=== PATIENT | female | born 1955 | race Caucasian/White ===

== ENCOUNTER → 2018-04-03 | Outpatient (CLI) | payer MEDICAID | LOC: LABWHC1 13:51 | PROVIDERS: ATTEND Dermatology Dermatopathology | DX: L40.0 Psoriasis vulgaris (principal); Z79.899 Other long term (current) drug therapy | CPT/HCPCS: 36415 ==

== ENCOUNTER → 2019-03-20 | Outpatient (CLI) | payer MEDICAID | END | disposition home or self-care (01) | LOC: LABWHC1 10:29 | PROVIDERS: ATTEND Dermatology Dermatopathology | DX: L40.0 Psoriasis vulgaris (principal); Z79.899 Other long term (current) drug therapy | CPT/HCPCS: 36415; 86480 ==

== ENCOUNTER → 2019-03-20 | Outpatient (CLI) | payer MEDICAID ==
--- NOTE | 2019-03-20 11:00 | BD ---
EXAMINATION TYPE: Axial Bone Density DATE OF EXAM: 03/20/2019 COMPARISON: 2008 DEXA bone scan report CLINICAL HISTORY: Postmenopausal female Height: 5 FT 6 IN Weight: 123 FRAX RISK QUESTIONS: Alcohol (3 or more units per day): NO Family History (Parent hip fracture): NO Glucocorticoids (More than 3mos): NO (Ex: prednisone, prednisolone, methylprednisolone, dexamethasone, and hydrocortisone). History of Fracture in Adulthood: NO Secondary Osteoporosis: 1. Type 1 Diabetes: NO 2. Hyperthyroidism: NO 3. Menopause before 45: NO 4. Malnutrition: NO 5. Chronic liver disease: NO Rheumatoid Arthritis: NO Current Tobacco Use: NO RISK FACTORS HISTORY OF: Active: YES Postmenopausal woman: AGE 55-56 MEDICATIONS: Additional Medications: STELARA INJ FOR PSORIASIS EVERY 3 MONTHS Additional History: STELARA INJ FOR PSORIASIS EXAM MEASUREMENTS: Bone mineral densitometry was performed using the [employer] System. Bone mineral density as measured about the Lumbar spine is: ----- L1-L4(G/cm2): 0.967 T Score Values are as follows: ----- L2: -1.6 ----- L3: -2.2 ----- L4: -1.1 ----- L1-L4: -1.8 Bone mineral density has: DECREASED -0.1 % since study of: 2008 Bone mineral density about the R hip (g/cm2): 0.816 Bone mineral density about the L hip (g/cm2): 0.798 T Score values are as follows: -----R Neck: -1.6 -----L Neck: -1.7 -----R Total: -1.6 -----L Total: -1.7 Bone mineral density has: DECREASED -15.2 % since study of: 2008 IMPRESSION: Osteopenia (T Score between -2.5 and -1) remains present. There remains slightly increased risk of fracture and the patient may be considered for treatment. Re-Screen 2-5 years. NOTE: T-SCORE=SD OF THE YOUNG ADULT MEAN.
--- NOTE | 2019-03-23 11:54 | MM ---
Reason for exam: screening (asymptomatic). Last mammogram was performed 11 years and 9 months ago. History: Patient is postmenopausal. Took hormonal contraceptives for 10 years. Physical Findings: A clinical breast exam by your physician is recommended on an annual basis and results should be correlated with mammographic findings. MG 3D Screening Mammo W/Cad Bilateral CC and MLO view(s) were taken. Prior study comparison: September 05, 2013, mammogram. June 10, 2010, mammogram. The breast tissue is heterogeneously dense. This may lower the sensitivity of mammography. There are benign appearing vascular calcifications in the right breast. There is no discrete abnormality. ASSESSMENT: Benign, BI-RAD 2 RECOMMENDATION: Routine screening mammogram of both breasts in 1 year.
== END | disposition home or self-care (01) ==
LOC: RADMAMWWP 09:43
PROVIDERS: ATTEND Obstetrics & Gynecology
DX: Z12.31 Encounter for screening mammogram for malignant neoplasm of breast (principal); M85.80 Other specified disorders of bone density and structure, unspecified site
CPT/HCPCS: 77063; 77067; 77080

== ENCOUNTER 2019-12-18 08:45 | Emergency (ER) | payer MEDICAID ==
[2019-12-18 08:51] VITALS: RESP 18; TEMP 98.3
[2019-12-18] MEDS ORDERED: HYDROcodone/APAP 7.5-325MG 1 EACH TAB PO ONE (09:03)
--- NOTE | 2019-12-18 09:32 | XR ---
EXAMINATION TYPE: XR foot complete RT DATE OF EXAM: 12/18/2019 COMPARISON: NONE HISTORY: Pain TECHNIQUE: Three views are submitted. FINDINGS: A chronic appearing deformities of the first, second, third, fourth and fifth proximal phalanx. Sever e arthropathy of the first MTP with moderate changes involving the remaining MTP joints. No erosive c hanges. Postsurgical change involving the first metatarsal. Tiny plantar calcaneal spur. IMPRESSION: 1. Diffuse osteopenia with arthropathy and postsurgical changes. No definite acute fracture. If sympt oms persist consider follow-up exam in 7-10 days.
--- NOTE | 2019-12-18 09:33 | XR ---
EXAMINATION TYPE: XR knee complete RT DATE OF EXAM: 12/18/2019 COMPARISON: NONE HISTORY: Pain TECHNIQUE: Three views are submitted. FINDINGS: Joint spaces are preserved. Osseous structures are intact. No acute fracture seen. Mild diffuse os teopenia. There is a moderate-sized suprapatellar joint effusion. IMPRESSION: 1. No acute fracture or dislocation. Moderate-sized suprapatellar joint effusion. If there is concer n for internal derangement of the knee correlate with MRI.
--- NOTE | 2019-12-18 09:42 | ED ---
Fall HPI - General Chief Complaint: Fall Stated Complaint: fall, rt sided pain Time Seen by Provider: 12/18/19 08:55 Source: patient, RN notes reviewed Mode of arrival: wheelchair Limitations: physical limitation - History of Present Illness Initial Comments: This is a pleasant 64-year-old female presents to the emergency Department with the chief complaint of a fall that happened yesterday. Patient states she tripped falling on her right side. She states she slipped on the hardwood floor. Patient complains of right hip, pelvic pain, right knee pain and right foot pain. She does not she's had prior surgery to her right foot. She states she is barely able to put pressure on her right leg secondary to pain. She was using crutches that she had the house. She took some ibuprofen last night minimal relief of symptoms. Denies any head injury no loss conscious. Denies any back pain, bowel bladder incontinence. Patient denies any chest pain, lower [place] paresthesias. Patient states her right knee is swollen, pain over the dorsal aspect of her foot primarily over the first and second metacarpal region - Related Data Home Medications Medication Instructions Recorded Confirmed Ustekinumab [Stelara] 45 mg SQ Q90D 12/18/19 12/18/19 Previous Rx's Medication Instructions Recorded HYDROcodone/APAP 7.5-325MG [[place] 1 tab PO Q6HR PRN #20 tab 12/18/19 7.5-325] Allergies Allergy/AdvReac Type Severity Reaction Status Date / Time No Known Allergies Allergy Verified 12/18/19 09:38 Review of Systems ROS Statement: Those systems with pertinent positive or pertinent negative responses have been documented in the HPI. ROS Other: All systems not noted in ROS Statement are negative. Past Medical History Past Medical History: No Reported History History of Any Multi-Drug Resistant Organisms: None Reported Additional Past Surgical History / Comment(s): bunion surgery. Past Psychological History: No Psychological Hx Reported Smoking Status: Never smoker Past Alcohol Use History: Occasional Past Drug Use History: None Reported General Exam Limitations: no limitations General appearance: alert, in no apparent distress Head exam: Present: atraumatic, normocephalic, normal inspection Eye exam: Present: normal appearance Neck exam: Present: normal inspection, full ROM. Absent: tenderness, meningismus, lymphadenopathy Respiratory exam: Present: normal lung sounds bilaterally. Absent: respiratory distress, wheezes, rales, rhonchi, stridor Cardiovascular Exam: Present: regular rate, normal rhythm, normal heart sounds. Absent: systolic murmur, diastolic murmur, rubs, gallop, clicks GI/Abdominal exam: Present: soft, normal bowel sounds. Absent: distended, tenderness, guarding, rebound, rigid Extremities exam: Present: other (Right foot there is mild tenderness of the first and second metatarsal region. Neurovascular intact. No iris deformity no malleoli tenderness there is some swelling noted of the right knee with mild discomfort with range of motion towards her right hip. There is minimal tenderness the right hip, ) Neurological exam: Present: alert, oriented X3 Skin exam: Present: warm, dry, intact, normal color. Absent: rash Course Vital Signs 12/18/19 12/18/19 12/18/19 08:48 09:51 10:00 Temperature 98.3 F Pulse Rate 77 72 72 Respiratory 18 18 18 Rate Blood Pressure 167/78 146/86 146/86 O2 Sat by Pulse 100 100 100 Oximetry Medical Decision Making - Medical Decision Making 64-year-old presented for fall. Patient has right-sided superior and inferior pubic rami fracture. Patient has a cyst walking device at home. Patient will follow-up with orthopedics pain control provided. Disposition Clinical Impression: Fall, Fracture of right inferior pubic ramus, Fracture of right superior pubic ramus Disposition: HOME SELF-CARE Condition: Stable Instructions (If sedation given, give patient instructions): Pelvic Fracture (ED) Additional Instructions: Please return to the Emergency Department if symptoms worsen or any other concerns. Prescriptions: HYDROcodone/APAP 7.5-325MG [[place] 7.5-325] 1 tab PO Q6HR PRN #20 tab PRN Reason: Pain Is patient prescribed a controlled substance at d/c from ED?: Yes When asked, does pt state using other controlled substances?: No If prescribed controlled substance>3 days was MAPS reviewed?: Yes If opioid is for acute pain is fill amount 7 days or less?: Yes If Rx opioid, was Start Talking consent form obtained?: Yes Referrals: Kvng Castle MD [Primary Care Provider] - 1-2 days Alejandro Cid MD [STAFF PHYSICIAN] - 1-2 days Time of Disposition: 10:25
--- NOTE | 2019-12-18 09:43 | XR ---
EXAMINATION TYPE: XR Hip RT and AP Pelvis DATE OF EXAM: 12/18/2019 COMPARISON: NONE HISTORY: Pain TECHNIQUE: A single AP view of the pelvis is obtained. Two views of the right hip are obtained. FINDINGS: There is hypertrophic and degenerative change lower lumbar spine. There is a deformity of the right inferior pubic ramus. Along the distal margin of the superior pubic ramus near the pubic sy mphysis there is a slight cortical step-off. Femoral neck. IMPRESSION: 1. Findings are compatible with an acute fracture involving the right superior and inferior pubic michelle us.
--- NOTE | 2019-12-18 10:16 | CT ---
EXAMINATION TYPE: CT pelvis wo con DATE OF EXAM: 12/18/2019 COMPARISON: X-ray 12/18/2019 HISTORY: Fall, right sided pain CT DLP: 490.4 mGycm Automated exposure control for dose reduction was used. FINDINGS: There is an acute fracture involving the right inferior pubic ramus as well as the superior pubic michelle us ramus as it extends to the symphysis pubis. Mild displacement of the inferior pubic ramus fracture . Visualized intrapelvic structures demonstrate small amount of fluid in the pelvis potentially could r epresent a small amount of blood. Bladder is decompressed limited in assessment. There is abnormal at tenuation along the anterior margin the bladder which is hyperdense. This could represent small amoun t of hemorrhage. Urinoma or bladder injury not excluded. Small amount subcutaneous edema seen lateral to the right hip. IMPRESSION: 1. Acute fractures of the right superior and inferior pubic ramus. 2. A small amount of attenuation anterior to the bladder which is hyperdense likely representing hemo rrhage. Additionally area of hyperdense attenuation is seen posteriorly within the pelvis also could represent hemorrhage. Bladder is decompressed and limited assessment as discussed above. Correlate wi th hemoglobin and hematocrit.
[2019-12-18 10:38] VITALS: BP 133/101; PULSE 69
== END 2019-12-18 10:38 | disposition home or self-care (01) ==
LOC: EC 08:45
DX: S32.591A Other specified fracture of right pubis, initial encounter for closed fracture (principal); Z79.899 Other long term (current) drug therapy; Z98.890 Other specified postprocedural states; W01.198A Fall on same level from slipping, tripping and stumbling with subsequent striking against other object, initial encounter; Y92.009 Unspecified place in unspecified non-institutional (private) residence as the place of occurrence of the external cause
CPT/HCPCS: 72192; 73502; 99284

== ENCOUNTER → 2020-03-26 | Outpatient (CLI) | payer MEDICAID ==
[2020-03-26 10:25] LABS: Basophils % (A) 1 %; Eosinophils # (A) 0.1 k/uL (0-0.7); Eosinophils % (A) 4 %; HCT 44.3 % (34.0-46.0); HGB 15.2 gm/dL (11.4-16.0); Lymphocytes # (A) 1.1 k/uL (1.0-4.8); Lymphocytes % (A) 35 %; MCHC 34.4 g/dL (31.0-37.0); Mean Platelet Volume 7.1; Monocytes # (A) 0.3 k/uL (0-1.0); Monocytes % (A) 9 %; Neutrophils # (A) 1.5 k/uL (1.3-7.7); Neutrophils % (A) 48 %; Platelet Count 167 k/uL (150-450); RBC 4.62 m/uL (3.80-5.40); WBC 3.1 k/uL (3.8-10.6)
[2020-03-27 04:09] LABS: African American GFR (CKD) 89.7 (60.0-200.0); Albumin/Globulin Ratio 2.63 (1.60-3.17); Anion Gap 18.6 mmol/L (4.00-12.00); BUN/Creat Ratio 13.75 Ratio (12.00-20.00); Calcium 9.9 mg/dL (8.7-10.3); Carbon Dioxide 19.4 mmol/L (21.6-31.8); Chol/HDL Ratio 1.99; Globulin 1.9 g/dL (1.6-3.3); LDL Cholesterol,Calculated 85.6 mg/dL (0.0-131.0); Non-African American GFR(CKD) 77.4 (60.0-200.0); Potassium 4.6 mmol/L (3.5-5.5); Total Bilirubin 0.8 mg/dL (0.3-1.2); Total Protein 6.9 g/dL (6.2-8.2); VLDL Calculation 17.4 mg/dL (5.00-40.00)
== END | disposition home or self-care (01) ==
LOC: LABWHC1 09:40
PROVIDERS: ATTEND Dermatology Dermatopathology
DX: Z00.00 Encounter for general adult medical examination without abnormal findings (principal); L40.9 Psoriasis, unspecified; M85.80 Other specified disorders of bone density and structure, unspecified site; Z79.899 Other long term (current) drug therapy; Z13.220 Encounter for screening for lipoid disorders; Z13.228 Encounter for screening for other metabolic disorders
CPT/HCPCS: 36415; 80053; 80061; 82306; 84439; 84443; 85025; 86480

== ENCOUNTER → 2020-07-01 | Outpatient (CLI) | payer MEDICARE, BC ==
--- NOTE | 2020-07-01 12:27 | US ---
EXAMINATION TYPE: US pelvis complete transvag DATE OF EXAM: 07/01/2020 COMPARISON: NONE CLINICAL HISTORY: R68.89 Left ovarian cyst. Patient states doctor felt possible left ovarian cyst. TECHNIQUE: Transvaginal (TV) and Transabdominal (TA) . Transabdominal sonographic images of the pel vis were acquired. Transvaginal sonographic images were medically necessary to better assess the fol lowing anatomy: Ovaries Date of LMP: Postmenopausal, EXAM MEASUREMENTS: Uterus: 5.1 x 4.2 x 2.8 cm Endometrial Stripe: 0.2 cm 1. Uterus: Anteverted and anteflexed. Appears small in size. Heterogenous. Limited visualization due to bowel gas 2. Endometrium: wnl 3. Right Ovary: Obscured by overlying bowel gas 4. Left Ovary: Obscured by overlying bowel gas 5. Bilateral Adnexa: prominent vessels seen in left adnexa 6. Posterior cul-de-sac: no free fluid IMPRESSION: 1. Normal pelvic ultrasound.
== END | disposition home or self-care (01) ==
LOC: RADUSWWP 09:09
PROVIDERS: ATTEND Obstetrics & Gynecology
DX: N83.202 Unspecified ovarian cyst, left side (principal)
CPT/HCPCS: 76830; 76856

== ENCOUNTER → 2020-07-03 | Outpatient (CLI) | payer MEDICARE, BC ==
--- NOTE | 2020-07-07 09:47 | MM ---
Reason for exam: screening (asymptomatic). Last mammogram was performed 1 year and 3 months ago. History: Patient is postmenopausal. Took hormonal contraceptives for 10 years. Physical Findings: A clinical breast exam by your physician is recommended on an annual basis and results should be correlated with mammographic findings. MG 3D Screening Mammo W/Cad Bilateral CC and MLO view(s) were taken. Prior study comparison: March 20, 2019, bilateral MG 3d screening mammo w/cad. The breast tissue is heterogeneously dense. This may lower the sensitivity of mammography. No significant changes when compared with prior studies. ASSESSMENT: Benign, BI-RAD 2 RECOMMENDATION: Routine screening mammogram of both breasts in 1 year.
== END | disposition home or self-care (01) ==
LOC: RADMAMWWP 10:17
PROVIDERS: ATTEND Obstetrics & Gynecology
DX: Z12.31 Encounter for screening mammogram for malignant neoplasm of breast (principal); Z78.0 Asymptomatic menopausal state; Z80.3 Family history of malignant neoplasm of breast
CPT/HCPCS: 77063; 77067

== ENCOUNTER → 2020-07-14 | Outpatient (CLI) | payer MEDICARE, BC ==
[2020-07-14 14:41] LABS: African American GFR (CKD) >90 (>60 ml/min/1.73 sqM); Blood Urea Nitrogen 14 mg/dL (7-17); Non-African American GFR(CKD) >90 (>60 ml/min/1.73 sqM)
--- NOTE | 2020-07-14 16:14 | CT ---
EXAMINATION TYPE: CT abdomen pelvis w con DATE OF EXAM: 07/14/2020 HISTORY: abnormal pelvic US CT DLP: 424.5mGycm Automated Exposure Control for Dose Reduction was Utilized. CONTRAST: CT scan of the abdomen and pelvis is performed with IV Contrast, patient injected with 100 mL of Isov ue 300. COMPARISON: CT pelvis December 18, 2019. Pelvic ultrasound July 01, 2020 FINDINGS: LUNG BASES: No significant abnormality is appreciated. LIVER/GB: Prominent right hepatic lobe redemonstrated and stable. PANCREAS: No significant abnormality is seen. SPLEEN: No significant abnormality is seen. ADRENALS: No significant abnormality is seen. KIDNEYS: Symmetric cortical medullary uptake and excretion from both kidneys without concerning solid or cystic renal mass or hydronephrosis seen bilaterally. BOWEL: Oral contrast reaches level of cecum making evaluation of distal ball somewhat suboptimal. Nor mal-appearing appendix is seen in the right upper pelvis posteriorly. There is moderate fecal promine nce throughout the right and transverse colonic loops. No suspicious smaller large bowel dilatation. Patient has very little intra-abdominal fat making evaluation slightly suboptimal. UTERUS/ADNEXA: Uterus is somewhat small in size consistent with patient's postmenopausal age. No susp icious adnexal masses. No significant prominent draining veins or vessels in the pelvis on CT. LYMPH NODES: No greater than 1cm abdominal or pelvic lymph nodes are appreciated. OSSEOUS STRUCTURES: Moderate disc space narrowing with vacuum disc phenomenon L4-L5 level. Mild-to-mo derate multilevel anterior and lateral spurring. Tzdj-gi-athzldke narrowing of both hip joints. OTHER: No significant additional abnormality is seen. IMPRESSION: No concerning pelvic mass. Fairly moderate proximal to mid colonic fecal stasis. No bowel obstruction.
== END | disposition home or self-care (01) ==
LOC: RADCTMAIN 13:52
PROVIDERS: ATTEND Obstetrics & Gynecology
DX: K59.89 Other specified functional intestinal disorders (principal)
CPT/HCPCS: 82565; 84520; 74177; 36415; Q9967

== ENCOUNTER → 2021-03-17 | Outpatient (CLI) | payer MEDICARE, BC | END | disposition home or self-care (01) | LOC: LABWHC1 12:47 | PROVIDERS: ATTEND Dermatology Dermatopathology | DX: L40.0 Psoriasis vulgaris (principal) | CPT/HCPCS: 36415; 86480 ==

== ENCOUNTER → 2023-09-08 | Outpatient (CLI) | payer MEDICARE ==
[2023-09-08 14:46] VITALS: BP 145/94; PULSE 74; RESP 16; TEMP 97.6
[2023-09-08] MEDS: ZOLEDRONIC ACID 5 MG in SODIUM CHLORIDE 0.9% 100 ML IV NR (14:48)
[2023-09-08] MEDS: SODIUM CHLORIDE 0.9% 500 ML 500 ML in EMPTY BAG 1 BAG IV PRN (14:48)
== END ==
LOC: PROCWHC3 14:32
PROVIDERS: ATTEND Family Medicine
DX: M81.0 Age-related osteoporosis without current pathological fracture (principal); E55.9 Vitamin D deficiency, unspecified
CPT/HCPCS: 96365; J3489

== ENCOUNTER → 2023-09-13 | Outpatient (CLI) | payer MEDICARE ==
--- NOTE | 2023-09-13 14:03 | CT ---
EXAMINATION TYPE: CT wrist LT wo con DATE OF EXAM: 09/13/2023 COMPARISON: None HISTORY: fx CT DLP: 112.[address] of the left wrist with reconstruction imaging. TECHNIQUE: Unenhanced CT of the left wrist was performed with bone and soft tissue window settings garza bmitted in the axial coronal and sagittal planes. At a separate workstation 3-D TR imaging was obtai nikki. FINDINGS: Comminuted fracture distal radius with intra-articular extension. A portion of the fracture demonstrates 1 mm fracture depression. 2 mm fracture displacement. No additional fractures seen with in the field of view. The ulna as visualized is intact as are the carpal bones. There is soft tissue edema noted. IMPRESSION: 1. Comminuted distal radial fracture with intra-articular extension.
== END | disposition home or self-care (01) ==
LOC: RADCTMAIN 12:40
PROVIDERS: ATTEND Orthopaedic Surgery
DX: M25.532 Pain in left wrist (principal); S52.572A Other intraarticular fracture of lower end of left radius, initial encounter for closed fracture

== ENCOUNTER → 2024-03-30 | Outpatient (CLI) | payer MEDICARE ==
[2024-03-30 12:59] LABS: African American GFR (CKD) >90 (>60 ml/min/1.73 sqM); Blood Urea Nitrogen 11 mg/dL (7-17); Non-African American GFR(CKD) >90 (>60 ml/min/1.73 sqM)
--- NOTE | 2024-03-30 13:45 | CT ---
EXAMINATION TYPE: CT abdomen w con CT DLP: 505 mGycm, Automated exposure control for dose reduction was used. DATE OF EXAM: 03/30/2024 1:31 PM COMPARISON: CT abdomen pelvis 07/14/2020 CLINICAL INDICATION:Female, 68 years old with history of K59.00 CONSTIP R14.0 ABD DISTENSION; Constip ation and abdominal bloating. TECHNIQUE: Standard CT of the abdomen following the administration of 100 cc of Isovue 300 IV contr ast material and oral contrast. Coronal and sagittal reformats were performed. FINDINGS: LOWER CHEST: Trace left pleural effusion. Calcified granuloma within the left lower lobe. ABDOMEN LIVER: Unremarkable. Portal venous system is patent. GALLBLADDER AND BILE DUCTS: Unremarkable. PANCREAS: Unremarkable. SPLEEN: Calcified granuloma. ADRENAL GLANDS: Unremarkable. KIDNEYS AND URETERS: No evidence of hydronephrosis or renal calculus. The kidneys enhance symmetrical ly. Contrast is demonstrated within both collecting systems on the delayed phase. STOMACH AND BOWEL: Small hiatal hernia, duodenum is unremarkable. No visualized focal bowel wall thic kening. Enteric contrast reaches the mid small bowel. Moderate amount of stool is present within the visualized colon. No evidence of bowel obstruction. PERITONEUM/RETROPERITONEUM: No evidence of pneumoperitoneum. Small amount of ascites is demonstrated throughout the abdomen and pelvis. Large amount of omental caking identified measuring up to 13.3 x 4 .4 cm (series 3, image 55). VASCULATURE: No evidence of aortic aneurysm. MUSCULOSKELETAL: No acute osseous abnormalities. Mild multilevel degenerative disc disease. No aggres sive osseous lesion. LYMPH NODES: No gross evidence for lymphadenopathy. SOFT TISSUE/ABDOMINAL WALL: Unremarkable IMPRESSION: 1. Large amount of omental caking with small volume ascites throughout the visualized abdomen and pe lvis. Findings are highly concerning for malignancy of unknown primary. Further workup is recommended . Consider further evaluation with CT pelvis. 2. Trace left pleural effusion. 3. Small hiatal hernia. [facility], , 03/30/2024 1:43 PM
== END | disposition home or self-care (01) ==
LOC: RADCTMAIN 12:17
PROVIDERS: ATTEND Family Medicine
DX: K44.9 Diaphragmatic hernia without obstruction or gangrene (principal); J90 Pleural effusion, not elsewhere classified; K59.00 Constipation, unspecified; R14.0 Abdominal distension (gaseous); R18.8 Other ascites
CPT/HCPCS: 82565; 84520; 74160; 36415; Q9967

== ENCOUNTER → 2024-04-03 | Outpatient (CLI) | payer MEDICARE ==
[2024-04-03 13:57] LABS: African American GFR (CKD) >90 (>60 ml/min/1.73 sqM); Blood Urea Nitrogen 11 mg/dL (7-17); Non-African American GFR(CKD) >90 (>60 ml/min/1.73 sqM)
--- NOTE | 2024-04-03 15:37 | CT ---
EXAMINATION TYPE: CT ChestAbdPelvis w con DATE OF EXAM: 04/03/2024 COMPARISON: CT abdomen 03/30/24 HISTORY: malignant ascites CT DLP: 545 mGycm Automated exposure control for dose reduction was used. CONTRAST: CT scan of the chest, abdomen and pelvis is performed with Oral Contrast and with IV Contrast, patien t injected with 100ml mL of Isovue 300. FINDINGS: CT chest: There is a small hiatal hernia. There is no suspicious lung mass or nodule. There are 2 small calcified granulomas in the left lung b ase. There is no abnormal airspace/consolidative density or abnormal interstitial density. There is a small left pleural effusion. The great vessels and chest are normal there is no mediastinal, hilar or axillary adenopathy. No focal osseous lesions are seen. CT abdomen and pelvis: Gallbladder is normal without distention, pericholecystic fluid, wall thickening or gallstone. There is no biliary ductal dilatation. There is no focal mass or organomegaly involving the liver, pancreas, spleen or adrenal glands.. There is no solid renal mass or hydronephrosis. There is no retroperitoneal adenopathy or hemorrhage in the caliber of the abdominal aorta is normal. The bowel loops are normal in caliber and there is no dilatation or obstruction. As on the prior study, there is a large degree of omental caking and there is a moderate degree of a scites predominantly within the upper abdomen. There is no free intraperitoneal air. No focal osseous lesions are seen. IMPRESSION: 1. No change in the small left pleural effusion. 2. No change in the marked degree of omental caking in the abdomen and pelvis with stable moderate as cites. [facility], , 04/03/2024 3:35 PM
== END | disposition home or self-care (01) ==
LOC: RADCTMAIN 13:20
PROVIDERS: ATTEND Internal Medicine Hematology & Oncology
DX: Z03.89 Encounter for observation for other suspected diseases and conditions ruled out (principal); R18.0 Malignant ascites; J90 Pleural effusion, not elsewhere classified
CPT/HCPCS: 82565; 84520; 71260; 74177; 36415; Q9967

== ENCOUNTER 2024-04-20 10:26 | Day surgery (SDC) | payer MEDICARE ==
[~2024-04-20 10:26] MED LIST: HYDROmorphone 0.5 MG/0.5 ML SYRINGE IVP PRN; Pre Op ABX Message 1 EACH MISC MISCELLANE ONE
[2024-04-20] MEDS: LACTATED RINGERS 1,000 ML IV ONE (10:48)
[2024-04-20 10:53] VITALS: TEMP 98.4
[2024-04-20] MEDS: DEXAMETHASONE SOD PHOSPHATE 4 MG/ML 1 ML VIAL IV ONE (10:54)
[2024-04-20] MEDS: LACTATED RINGERS 1,000 ML IV SCH (10:54)
[2024-04-20] MEDS: ONDANSETRON 4 MG/2 ML VIAL IVP ONE (10:54)
[2024-04-20] MEDS ORDERED: PROPOFOL 10 MG/ML 20 ML VIAL IV ONE (12:41)
[2024-04-20] MEDS ORDERED: SUCCINYLCHOLINE CHLORIDE 200 MG/10 ML VIAL IV ONE (12:41)
[2024-04-20] MEDS ORDERED: fentaNYL (PF) 50 MCG/ML 2 ML AMP ONE (12:41)
[2024-04-20] MEDS ORDERED: MIDAZOLAM 2 MG/2 ML VIAL ONE (12:41)
[2024-04-20] MEDS ORDERED: LIDOCAINE 1% INJ 10MG/ML (20 ML MDV) ONE (12:41)
[2024-04-20] MEDS ORDERED: KETOROLAC 15 MG/ML 1 ML VIAL ONE (12:41)
--- NOTE | 2024-04-20 12:43 | P.GSHP ---
History of Present Illness H&P Date: 04/20/24 Chief Complaint: Ovarian cancer 68-year-old female recently diagnosed with ovarian cancer. Patient here today for Port-A-Cath placement. Thinks she will begin chemotherapy next week. Past Medical History Past Medical History: Cancer, Thyroid Disorder Additional Past Medical History / Comment(s): PSORIASIS, OSTEOPOROSIS, hypothyroidism, recent dx. "almost 100% sure it's ovarian cancer" History of Any Multi-Drug Resistant Organisms: None Reported Past Surgical History: Orthopedic Surgery Additional Past Surgical History / Comment(s): bunion surgery, closed reduction left wrist, colonoscopy x 2 Past Anesthesia/Blood Transfusion Reactions: No Reported Reaction Smoking Status: Never smoker Medications and Allergies Home Medications Medication Instructions Recorded Confirmed Type Levothyroxine Sodium 25 mcg PO DAILY 09/08/23 04/20/24 History Secukinumab [Cosentyx Unoready Pen] 3 ml SQ DIRECTED 09/08/23 04/20/24 History Allergies Allergy/AdvReac Type Severity Reaction Status Date / Time No Known Allergies Allergy Verified 04/20/24 10:49 Surgical - Exam Vital Signs Temp Pulse Resp BP Pulse Ox 98.4 F 80 16 136/73 96 04/20/24 10:52 04/20/24 10:52 04/20/24 10:52 04/20/24 10:52 04/20/24 10:52 Physical exam: General: Well-developed, thin appearing HEENT: Normocephalic, sclerae nonicteric Abdomen: Nontender, mild distention Extremities: No edema Neuro: Alert and oriented Assessment and Plan (1) Ovarian cancer Narrative/Plan: Will proceed with Port-A-Cath placement at this time. Risks of bleeding, infection, DVT, pneumothorax, catheter malfunction, anesthesia related complications were discussed. The patient understands and wishes to proceed. Current Visit: Yes Status: Acute Code(s): C56.9 - MALIGNANT NEOPLASM OF UNSPECIFIED OVARY SNOMED Code(s): 773990264
[2024-04-20] MEDS: SODIUM CHLORIDE 0.9% 100 ML with ceFAZolin 2,000 MG IV ONE (12:46)
[2024-04-20] MEDS: HEPARIN SODIUM,PORCINE 100 UNIT/ML 5 ML VIAL IV ONE (13:14)
[2024-04-20] MEDS: BUPIVACAINE (PF) 0.25% 30 ML VIAL SQ ONE ×2 (13:14)
[2024-04-20] MEDS ORDERED: NALOXONE 0.4 MG/ML 1 ML VIAL IV PRN (13:42)
[2024-04-20] MEDS ORDERED: traMADol 50 MG TAB PO PRN (13:42)
--- NOTE | 2024-04-20 13:58 | P.OP ---
Date of Procedure: 04/20/24 Procedure(s) Performed: PREOPERATIVE DIAGNOSIS: Ovarian cancer POSTOPERATIVE DIAGNOSIS: Same PROCEDURE: Port-A-Cath placement with fluoroscopic and ultrasound guidance SURGEON: Sherwin EBL: 5 cc ANESTHESIA: General COMPLICATIONS: None OPERATIVE PROCEDURE: Patient was brought and placed on the operative table in the supine position. The patient was placed under general anesthesia at that time. The chest and neck were prepped and draped in usual sterile fashion. The ultrasound probe was used to identify the location of the right internal jugular vein. The skin was localized with lidocaine. The Seldinger needle was advanced into the IJ under ultrasound guidance. The wire was advanced through the needle under fluoroscopic guidance into the superior vena cava. A port pocket was created in the right infraclavicular location. The catheter was tunneled from the wire entrance site to the port pocket. The port was then connected to the catheter. The dilator introducer was threaded over the guidewire. The guidewire and dilator were then removed. The catheter was advanced through the introducer and introducer was then removed. The tip was seen to be in the right atrial junction via fluoroscopy. A picture of the radiograph showing the tip of the catheter was taken. Port was flushed with both saline and a Hep-Lock solution. There was good flow both in and out of the port. The port was sutured in underlying tissues using 3-0 silk sutures. The subcutaneous tissues were reapproximated using 3-0 Vicryl sutures and the skin at both locations using 4-0 Monocryl sutures. Skin glue and sterile dressings then applied. DISPOSITION: Stable to recovery room
--- NOTE | 2024-04-20 14:29 | FL ---
Intraoperative/procedural fluoroscopic services were provided for right chest wall Port-A-Cath placem ent. Total fluoroscopy time is 6.6 seconds with a total of 2 submitted images to PACS. Total DAP 0.00 993 mGym2. Please see the operative note for further details. [facility], , 04/20/2024 2:27 PM
[2024-04-20 14:54] VITALS: BP 131/80; PULSE 71; RESP 17
--- NOTE | 2024-04-20 14:55 | XR ---
EXAMINATION TYPE: XR chest 1V confirm line plcmt DATE OF EXAM: 04/20/2024 2:51 PM COMPARISON: CT chest abdomen and pelvis 04/03/2024, fluoroscopic images 04/20/2024 TECHNIQUE: XR chest 1V confirm line plcmt Portable AP radiograph of the chest. CLINICAL INDICATION:Female, 68 years old with history of check line; FINDINGS: Lungs/Pleura: There is no evidence of pleural effusion, focal consolidation, or pneumothorax. Pulmonary vascularity: Unremarkable. Heart/mediastinum: Cardiomediastinal silhouette is unremarkable. Left hilar calcified granuloma. Musculoskeletal: No acute osseous pathology. Other findings: None Lines/Tubes: Right chest wall IJ Mediport catheter distal tip terminating in the low SVC. IMPRESSION: Right chest wall IJ Mediport catheter distal tip terminating in the low SVC. No pneumothorax. [facility], , 04/20/2024 2:53 PM
== END 2024-04-20 15:06 | disposition home or self-care (01) ==
LOC: OR 10:26
PROVIDERS: ATTEND Surgery
DX: C56.9 Malignant neoplasm of unspecified ovary (principal); E03.9 Hypothyroidism, unspecified; M81.0 Age-related osteoporosis without current pathological fracture; L40.9 Psoriasis, unspecified; Z79.890 Hormone replacement therapy; Z79.899 Other long term (current) drug therapy
CPT/HCPCS: 77001; 36561; C1788; J2250; J0330; J1642; J1100; J2405; J0690; J2003; J3010; J1885; J2704; J0665

== ENCOUNTER → 2024-09-05 | Outpatient (CLI) | payer MEDICARE ==
[2024-09-05 15:42] LABS: African American GFR (CKD) >90 (>60 ml/min/1.73 sqM); Blood Urea Nitrogen 13 mg/dL (7-17); Non-African American GFR(CKD) >90 (>60 ml/min/1.73 sqM)
--- NOTE | 2024-09-05 16:41 | CT ---
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 Contrast used: 100 cc Isovue-300. Oral contrast used: with Oral Contrast (none if empty) CT DLP: 545 mGycm, Automated exposure control for dose reduction was used. FINDINGS: LOWER CHEST: Unremarkable ABDOMEN LIVER: Unremarkable GALLBLADDER AND BILE DUCTS: Unremarkable. PANCREAS: Unremarkable. SPLEEN: Calcified granuloma in the spleen. ADRENAL GLANDS: Unremarkable. KIDNEYS AND URETERS: No evidence of hydronephrosis or obstructing renal calculus. The ureters are unr emarkable. PELVIS BLADDER: No evidence for wall thickening or mass given limitations of exam. REPRODUCTIVE: Unremarkable. ABDOMEN & PELVIS STOMACH AND BOWEL: No evidence of bowel obstruction. Redundant colon in the right abdomen. There is e vidence of circumferential wall thickening thought to be present involving this ascending colon and t ransverse colon. PERITONEUM/RETROPERITONEUM: No evidence of pneumoperitoneum. There is thought to be free fluid throug hout the abdomen most pronounced on the spleen and the liver. Mesenteric masses are now appreciated s uggesting positive response to therapy.. VASCULATURE: No evidence of aortic aneurysm. MUSCULOSKELETAL: No acute osseous abnormalities, remote right inferior pubic ramus fracture. LYMPH NODES: No gross evidence for lymphadenopathy. SOFT TISSUE/ABDOMINAL WALL: Postsurgical changes anterior abdominal wall. IMPRESSION: 1. Limited evaluation due to patient's body habitus. There is thought to be evidence of colitis invo lving the right colon. 2. Decrease in ascites throughout the abdomen. 3. Prior large omental masses are not definitively visualized correlate with attention on follow-up PET/CT. [facility], , 09/05/2024 4:39 PM
== END | disposition home or self-care (01) ==
LOC: RADCTMAIN 14:10
PROVIDERS: ATTEND Internal Medicine Hematology & Oncology
DX: C56.9 Malignant neoplasm of unspecified ovary (principal); R18.0 Malignant ascites
CPT/HCPCS: 82565; 84520; 74177; 36415; Q9967

== ENCOUNTER → 2024-09-05 | Outpatient (CLI) | payer MEDICARE ==
--- NOTE | 2024-09-05 11:44 | US ---
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 SIDE PERFORMED: RT ARM VESSELS IMAGED: IJV Subclavian Vein Axilla Vein Brachial Vein(s) Radial Paired Veins Ulnar Paired Veins Cephalic Vein* Basilic Vein* (*superficial vessels) FINDINGS: Right Arm: appears positive for DVT within RT IJV where the port was placed Grayscale, color doppler, spectral doppler imaging performed of the deep veins of the upper extremiti es. 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 [facility], , 09/05/2024 11:42 AM
== END | disposition home or self-care (01) ==
LOC: RADUSWWP 09:56
PROVIDERS: ATTEND Internal Medicine Hematology & Oncology
DX: I82.729 Chronic embolism and thrombosis of deep veins of unspecified upper extremity (principal)